=== PATIENT | female | born 1995 | race Caucasian/White ===

== ENCOUNTER 2018-08-22 07:03 | Emergency (ER) | payer OTHER ==
[2018-08-22] MEDS ORDERED: Sodium Chloride 0.9% 1000 ML 1,000 ML IV STA (07:19)
[2018-08-22] MEDS ORDERED: MORPHINE SULFATE 2 MG INJ IV ONE ×2 (07:23→08:48)
[2018-08-22] MEDS ORDERED: Zofran 4 MG/2 ML VIAL IV ONE (07:28)
[2018-08-22] MEDS ORDERED: MORPHINE SULFATE 2 MG INJ ONE ×2 (07:30→08:52)
[2018-08-22] MEDS ORDERED: Sodium Chloride 0.9% 1000 ML 1,000 ML ONE (07:30)
[2018-08-22 07:37] LABS: BASOPHIL % 0.3 % (0.0-0.4); Basophil (Absolute #) 0.03 (0-0.4); Eosinophil % 0.5 % (0.00-5.0); Eosinophil (Absolute #) 0.06 (0-0.5); Granulocyte Absolute (ANC) 9.03 (1.4-6.9); Granulocytes % 75.3 % (36.0-66.0); Hemoglobin 13.2 gm/dl (12.0-16.0); Lymphocyte (Absolute #) 2.03 (1.0-4.6); Mean Cell Volume 91.3 fl (78-100); Mean Corpuscular Hemoglobin 30.1 pg (26-32); Mean Platelet Volume 9.2 fl (6-9.5); Monocyte (Absolute #) 0.82 (0.0-1.3); Monocytes % 6.9 % (0.0-12.0); Platelet Count 302 K/mm3 (150-450); Red Blood Count 4.38 M/mm3 (4.1-5.4); Red Cell Distribution Width 12.5 % (11.5-14.0)
[2018-08-22 07:38] LABS: Appearance SLIGHTLY CLOUDY (CLEAR); Bacteria RARE /HPF (NEGATIVE); Bilirubin NEGATIVE (NEGATIVE); Blood LARGE Ery/ul (0-5); Glucose NEGATIVE (NEGATIVE); Ketones NEGATIVE (NEGATIVE); Leukocyte Esterase NEGATIVE (NEGATIVE); Mucus SLIGHT /HPF (NEGATIVE); Nitrite NEGATIVE (NEGATIVE); Protein,Urine Dip NEGATIVE (Negative); RBC >101 /HPF (0-2); Specific Gravity 1.014 (1.005-1.025); Urobilinogen NEGATIVE mg/dL (0-1)
[2018-08-22] MEDS ORDERED: Zofran 4 MG/2 ML VIAL ONE (07:42)
[2018-08-22 07:53] LABS: BLOOD UREA NITROGEN 7 mg/dL (7-17); CHLORIDE 104 mmol/L (98-107); Calcium 9.8 mg/dL (8.4-10.2); Carbon Dioxide 25 mmol/L (22-30); Creatinine 1 0.68 mg/dL (0.52-1.04); Glucose 97 mg/dL (74-106); Potassium 3.8 mmol/L (3.5-5.1); SODIUM 140 mmol/L (137-145)
--- NOTE | 2018-08-22 08:53 | XRAY ---
Exam: CT of the abdomen and pelvis without IV contrast from 08/22/2018. CTDI: 13.98 Comparison: CT of the abdomen and pelvis without IV contrast from 06/06/2016. Indication: 23-year-old female with history of left side and flank pain, vomiting. The patient has a history of prior appendectomy. Technique: Non-IV contrast axial images were obtained through the abdomen and pelvis. Reconstructed coronal and sagittal images were created and reviewed. Findings: The visualized lung bases are clear. The heart size is normal without pericardial effusion. The liver appears normal revealing no gross evidence of mass or intrahepatic biliary duct distention. The gallbladder is mildly distended and reveals no dense calcifications within it. The spleen is of normal size and reveals no mass. The pancreas and adrenal glands appear unremarkable. The left kidney reveals a 4 mm in diameter nonobstructing calculus within the posterior aspect of the upper pole. This is new from 06/06/2016. I note a moderate sized extrarenal pelvis on the left which is unchanged from 06/06/2016. The proximal left ureter is not dilated. No right renal calculi are seen. Assessment of the renal parenchyma is limited without the use of IV contrast. No gross renal mass is evident. No hydroureter or ureterolith is seen. The abdominal aorta appears of normal diameter. No abnormal retroperitoneal or mesenteric lymphadenopathy is seen. There is no free intraperitoneal air. Anterior abdominal wall appears intact. Surgical clips are seen adjacent to the inferior medial margin of the cecum consistent with interval appendectomy since the exam from 06/06/2016. The uterus is anteflexed and tilted toward the right. The ovaries appear unremarkable. No enlarged pelvic lymph nodes are seen. The urinary bladder is only minimally distended. A small amount air is seen within the nondependent portion of the urinary bladder. It is likely this is due to recent urinary bladder catheterization. Correlate clinically in this regard. I note 3 small calcified phleboliths within the lower left pelvis which are unchanged from 06/06/2016. The pelvic sidewalls appear unremarkable. I believe there is some minimal sigmoid colon diverticulosis without evidence of diverticulitis. The skeleton reveals no acute fracture or aggressive bone lesion. There is slight loss of the anterior vertebral body height of both T10 and T11 on the sagittal images representing no change. Small Schmorl's nodes are seen within the vertebral endplates within the visualized lower thoracic spine and upper lumbar spine down to the superior vertebral endplate of L2. This is unchanged. Impression: 1. There is a new nonobstructing 4 mm calculus within the posterior aspect of the upper pole of the left kidney. No other renal calculi are seen. 2. I again see asymmetric prominence of the left upper collecting system extending medially from the middle third of the left kidney, which I believe represents a moderate sized extrarenal pelvis. This is unchanged from 06/06/2016. There is no ureteral distention or ureterolith. There are 3 stable calcified phleboliths within the lower left pelvis representing no change from 06/06/2016. 3. The urinary bladder is only minimally distended. A small amount of air is seen within the nondependent portion of the urinary bladder lumen, probably due to recent urinary bladder catheterization. Correlate clinically. 4. Interval appendectomy as compared to 06/06/2016. 5. No other acute process is seen within the abdomen or pelvis. I believe there is some minimal sigmoid colon diverticulosis representing no change. No diverticulitis or other inflammatory process is seen. 6. No acute osseous process is seen. See above.
[2018-08-22] MEDS ORDERED: ROCEPHIN 1 Gm-D5w 50 ml Bag** 1 G/50 ML IVPB IV STA (08:57)
[2018-08-22] MEDS ORDERED: PYRIDIUM 200 MG PO STA (08:57)
--- NOTE | 2018-08-22 09:13 | ERPHSYRPT ---
- History of Present Illness Source: patient Exam Limitations: no limitations Patient Subjective Stated Complaint: woke up at 0600 today with left flank pain and vomiting. hx kidney stones. Triage Nursing Assessment: ambulated to room per self. skin w/d, color normal, resp easy. holding left flank area and unable to lie down. voided only small amt. Physician History: Pt is a 23 y/o female that presented to the ED with L CVA pain. Pt states, woke up this AM with L CVA pain, and the pain was so severe, she vomited a couple of times. Pt denies frequency or urgency, no dysuria. Pt states, has chills and sweats. No fevers. No SOB or cough. No chest pain or palpitations. Timing/Duration: today Activites at Onset: none Quality: sharpness, throbbing Onset Location: low back (on the left) Pain Radiation: none Severity of Pain-Max: moderate Severity of Pain-Current: moderate Modifying Factors: Improves With: analgesics Associated Symptoms: chills, nausea, vomiting, lower back pain Allergies/Adverse Reactions: amoxicillin Allergy (Severe, Verified 08/22/18 07:24) Rash Hx Tetanus, Diphtheria Vaccination/Date Given: Yes Hx Influenza Vaccination/Date Given: Yes Hx Pneumococcal Vaccination/Date Given: No Immunizations Up to Date: No - Past Medical History Pertinent Past Medical History: No Other Medical History: previous kidney infections with hospitalization - Past Surgical History Past Surgical History: Yes Gastrointestinal: Appendectomy - Social History Smoking Status: Never smoker Exposure to second hand smoke: Yes Drug Use: none Patient Lives Alone: No - Female History Hx Last Menstrual Period: yesterday Hx Now: No - Review of Systems Constitutional: Chills Eyes: No Symptoms Ears, Nose, & Throat: No Symptoms Respiratory: No Cough, No Dyspnea Cardiac: No Chest Pain, No Edema, No Syncope Abdominal/Gastrointestinal: Nausea, Vomiting, No Abdominal Pain, No Diarrhea Genitourinary Symptoms: Other (L CVA pain) Musculoskeletal: Back Pain (L CVA pain), No Neck Pain Neurological: No Dizziness, No Focal Weakness, No Sensory Changes - Nursing Vital Signs Nursing Vital Signs: Initial Vital Signs Temperature 97.4 F 08/22/18 07:09 Pulse Rate 96 H 08/22/18 07:09 Respiratory Rate 18 08/22/18 07:09 Blood Pressure 126/83 08/22/18 07:09 O2 Sat by Pulse Oximetry 98 08/22/18 07:09 Pain Scale Pain Intensity 6 - Physical Exam General Appearance: no apparent distress, alert Eye Exam: PERRL/EOMI Ears, Nose, Throat Exam: pharynx normal, moist mucous membranes Neck Exam: normal inspection, supple Respiratory Exam: normal breath sounds, lungs clear Cardiovascular Exam: regular rate/rhythm, No edema Gastrointestinal/Abdomen Exam: soft, No tenderness Back Exam: CVA tenderness (On left) Extremity Exam: normal inspection, normal range of motion, No pedal edema Neurologic Exam: alert, oriented x 3, cooperative, sensation nml, No motor deficits SpO2: 100 - Course Nursing assessment & vital signs reviewed: Yes - CT Exams Abdomen/Pelvis CT Interpretation: Tele-radiologist Report (No obstructing nephrolithiasis.) Ordered Tests: Active Orders 24 hr Category Date Time Status IV Insertion STAT Care 08/22/18 07:19 Active ABDOMEN AND PELVIS W/0 CONTRAS [CT] Stat Exams 08/22/18 07:15 Completed BMP Stat Lab 08/22/18 07:20 Completed CBC W DIFF Stat Lab 08/22/18 07:20 Completed HCG,QUALITATIVE URINE Stat Lab 08/22/18 07:25 Completed Urinalysis with Microscopy Stat Lab 08/22/18 07:25 Completed Medication Summary Generic Name Dose Route Start Last Admin Trade Name Freq PRN Reason Stop Dose Admin Ceftriaxone Sodium/Dextrose 1 g in 50 mls @ 100 mls/hr 08/22/18 08:57 Rocephin 1 Gm-D5w 50 Ml Bag IV 08/22/18 09:26 STAT STA Discontinued Medications Generic Name Dose Route Start Last Admin Trade Name Freq PRN Reason Stop Dose Admin Sodium Chloride 1,000 mls @ 999 mls/hr 08/22/18 07:19 08/22/18 07:33 Sodium Chloride 0.9% 1000 Ml IV 08/22/18 08:19 999 mls/hr .Q1H1M STA Administration Sodium Chloride Confirm 08/22/18 07:30 Sodium Chloride 0.9% 1000 Ml Administered 08/22/18 07:31 Dose 1,000 mls @ ud .ROUTE .STK-MED ONE Morphine Sulfate 2 mg 08/22/18 07:23 08/22/18 07:33 Morphine Sulfate 2 Mg Inj IV 08/22/18 07:24 2 mg STAT ONE Administration Morphine Sulfate Confirm 08/22/18 07:30 Morphine Sulfate 2 Mg Inj Administered 08/22/18 07:31 Dose 2 mg .ROUTE .STK-MED ONE Morphine Sulfate 2 mg 08/22/18 08:48 08/22/18 08:52 Morphine Sulfate 2 Mg Inj IV 08/22/18 08:49 2 mg STAT ONE Administration Morphine Sulfate Confirm 08/22/18 08:52 Morphine Sulfate 2 Mg Inj Administered 08/22/18 08:53 Dose 2 mg .ROUTE .STK-MED ONE Ondansetron HCl 4 mg 08/22/18 07:28 08/22/18 07:43 Zofran 4 Mg/2 Ml Vial IV 08/22/18 07:29 4 mg STAT ONE Administration Ondansetron HCl Confirm 08/22/18 07:42 Zofran 4 Mg/2 Ml Vial Administered 08/22/18 07:43 Dose 4 mg .ROUTE .STK-MED ONE Phenazopyridine HCl 200 mg 08/22/18 08:57 Pyridium 200 Mg PO 08/22/18 08:58 ONCE STA Lab/Rad Data: Laboratory Result Diagrams 08/22/18 07:20 08/22/18 07:20 Laboratory Results 08/22/18 08/22/18 08/22/18 Range/Units 07:25 07:25 07:20 WBC (4.0-10.5) K/mm3 RBC (4.1-5.4) M/mm3 Hgb (12.0-16.0) gm/dl Hct (35-47) % MCV (78-100) fl MCH (26-32) pg MCHC (32-36) g/dl RDW (11.5-14.0) % Plt Count (150-450) K/mm3 MPV (6-9.5) fl Gran % (36.0-66.0) % Eos # (Auto) (0-0.5) Absolute Lymphs (auto) (1.0-4.6) Absolute Monos (auto) (0.0-1.3) Lymphocytes % (24.0-44.0) % Monocytes % (0.0-12.0) % Eosinophils % (0.00-5.0) % Basophils % (0.0-0.4) % Absolute Granulocytes (1.4-6.9) Basophils # (0-0.4) Sodium 140 (137-145) mmol/L Potassium 3.8 (3.5-5.1) mmol/L Chloride 104 (98-107) mmol/L Carbon Dioxide 25 (22-30) mmol/L Anion Gap 14.0 (5-15) MEQ/L BUN 7 (7-17) mg/dL Creatinine 0.68 (0.52-1.04) mg/dL Estimated GFR > 60.0 ML/MIN Glucose 97 (74-106) mg/dL Calcium 9.8 (8.4-10.2) mg/dL Urine Color YELLOW (YELLOW) Urine Appearance SLIGHTLY CLOUDY (CLEAR) Urine pH 6.0 (5-6) Ur Specific [place] 1.014 (1.005-1.025) Urine Protein NEGATIVE (Negative) Urine Ketones NEGATIVE (NEGATIVE) Urine Blood LARGE (0-5) Pako/ul Urine Nitrite NEGATIVE (NEGATIVE) Urine Bilirubin NEGATIVE (NEGATIVE) Urine Urobilinogen NEGATIVE (0-1) mg/dL Ur Leukocyte Esterase NEGATIVE (NEGATIVE) Urine WBC (Auto) 11-15 (0-5) /HPF Urine RBC (Auto) >101 (0-2) /HPF U Epithel Cells (Auto) NONE (FEW) /HPF Urine Bacteria (Auto) RARE (NEGATIVE) /HPF Urine Mucus (Auto) SLIGHT (NEGATIVE) /HPF Urine Glucose NEGATIVE (NEGATIVE) mg/dL Urine HCG, Qual NEGATIVE (Negative) 08/22/18 Range/Units 07:20 WBC 12.0 H (4.0-10.5) K/mm3 RBC 4.38 (4.1-5.4) M/mm3 Hgb 13.2 (12.0-16.0) gm/dl Hct 40.0 (35-47) % MCV 91.3 (78-100) fl MCH 30.1 (26-32) pg MCHC 33.0 (32-36) g/dl RDW 12.5 (11.5-14.0) % Plt Count 302 (150-450) K/mm3 MPV 9.2 (6-9.5) fl Gran % 75.3 H (36.0-66.0) % Eos # (Auto) 0.06 (0-0.5) Absolute Lymphs (auto) 2.03 (1.0-4.6) Absolute Monos (auto) 0.82 (0.0-1.3) Lymphocytes % 17.0 L (24.0-44.0) % Monocytes % 6.9 (0.0-12.0) % Eosinophils % 0.5 (0.00-5.0) % Basophils % 0.3 (0.0-0.4) % Absolute Granulocytes 9.03 H (1.4-6.9) Basophils # 0.03 (0-0.4) Sodium (137-145) mmol/L Potassium (3.5-5.1) mmol/L Chloride (98-107) mmol/L Carbon Dioxide (22-30) mmol/L Anion Gap (5-15) MEQ/L BUN (7-17) mg/dL Creatinine (0.52-1.04) mg/dL Estimated GFR ML/MIN Glucose (74-106) mg/dL Calcium (8.4-10.2) mg/dL Urine Color (YELLOW) Urine Appearance (CLEAR) Urine pH (5-6) Ur Specific [place] (1.005-1.025) Urine Protein (Negative) Urine Ketones (NEGATIVE) Urine Blood (0-5) Pako/ul Urine Nitrite (NEGATIVE) Urine Bilirubin (NEGATIVE) Urine Urobilinogen (0-1) mg/dL Ur Leukocyte Esterase (NEGATIVE) Urine WBC (Auto) (0-5) /HPF Urine RBC (Auto) (0-2) /HPF U Epithel Cells (Auto) (FEW) /HPF Urine Bacteria (Auto) (NEGATIVE) /HPF Urine Mucus (Auto) (NEGATIVE) /HPF Urine Glucose (NEGATIVE) mg/dL Urine HCG, Qual (Negative) - Progress Progress: unchanged Progress Note: 08/22/18 09:15 Pt has some leukocytosis, but urine and CT are negative. She does have blood in the urine, with no obstructing stone. She got 1 lit of IVF, Rocephine 1 gr IV, and Pyridium PO. I will treat pt as a UTI, as there are no stnes. I will d /c her on Omnicef PO and Pyridium for pain. Pt should f/u with PCP. Will see patient in: office Counseled pt/family regarding: need for follow-up - Departure Time of Disposition: 09:17 Departure Disposition: Home Clinical Impression: UTI (urinary tract infection) Condition: Stable Critical Care Time: No Referrals: RAMU BENAVIDES [Primary Care Provider] - Additional Instructions: F/U with PCP after the weekend. Take meds as ordered. Prescriptions: Cefdinir [Omnicef] 300 mg PO BID 7 Days #14 capsule Phenazopyridine HCl 200 mg [Pyridium 200 mg] 200 mg PO TID PRN #12 tablet PRN Reason: pain with urination
[2018-08-22] MEDS ORDERED: PYRIDIUM 200 MG ONE (09:20)
[2018-08-22] MEDS ORDERED: ROCEPHIN 1 Gm-D5w 50 ml Bag** 1 G/50 ML IVPB IV ONE (09:20)
[2018-08-22 09:56] VITALS: BP 106/71; PULSE 73; O2SAT 98
== END 2018-08-22 10:05 | disposition home or self-care (01) ==
LOC: ED 07:03
DX: N39.0 Urinary tract infection, site not specified (principal); R11.2 Nausea with vomiting, unspecified; Z87.442 Personal history of urinary calculi
CPT/HCPCS: 36000; 36415; 74176; 80048; 81001; 84703; 85025; 96360; 96365; 96374; 96375; 99284; J0696; J2270; J2405; A9270-GY